=== PATIENT | male | born 1990 | race Caucasian/White ===

== ENCOUNTER 2018-12-08 15:08 | Emergency (ER) | payer OTHER ==
[2018-12-08 15:14] VITALS: BP 141/87
[2018-12-08] MEDS ORDERED: ERYTHROMYCIN 0.5% 1 GM OPHT.OINT LEFTEYE ONE (15:36)
--- NOTE | 2018-12-08 15:41 | EDPHY ---
General - History Smoking Status: Never smoked Time Seen by Provider: 12/08/18 15:18 Narrative: CLINICAL IMPRESSION: Left upper eyelid blepharitis ASSESSMENT/PLAN: 28-year-old male presents to the emergency department with atraumatic swelling of the left upper eyelid associated with discharge this morning. No reported vision changes. No palpable or visible hordeolum or Chalazion. He does not have purulent discharge to suggest bacterial conjunctivitis. I have given him erythromycin ointment, warm compresses suggested, work note excusing him from work today, follow up with PCP. Warning signs return to ED sooner discussed and discharge. CHIEF COMPLAINT: "I think I have pink eye". HPI: 28-year-old otherwise healthy male who works in the [employer] services here at [facility] presents to the emergency department with complaints of atraumatic left eye swelling and discharge. Patient reports symptoms began yesterday after he left work. Today he awoke with his eye "crusted shut". He has not had discharge during the day but states he has a burning sensation to the upper eyelid. He does not wear glasses or contacts. No prior eye surgery. No chemical exposures at his job. He tried rinsing the eye and an eye wash station yesterday. He denies foreign body sensation. PAST MEDICAL HISTORY: No significant past medical, surgical or social history. Works in the [employer] services at [facility] See triage summary and nurse notes for addition applicable history REVIEW OF SYSTEMS: A full 10 point review of systems was negative except for those mentioned in HPI. PHYSICAL EXAM: General Appearance: Alert, oriented, appropriate, cooperative, NAD, well hydrated, non-toxic appearing, VSS, no hypoxia. HEENT: TMs are clear bilaterally no perforation or FB, no injection, no evidence of serous or mucopurulent otitis. Oropharynx clear is no erythema or exudates, no tonsillar hypertrophy or asymmetry. Dentition without abnormality. Eyes: PERRLA, no acute vision change, discharge, pain or photosensitivity. Swelling of the left upper eyelid, no obvious hordeolum or too lazy in, Conjunctiva pink, no pallor or injection no discharge from the medial canthus. MEDICAL DECISION MAKING: Patient was seen independently. Secondary supervising physician at time of evaluation was: Dr. Adams. Diagnosis: Blepharitis, left upper eyelid. New, requires workup Summary: See Assessment and Plan for summary of ED visit Patient Progress: Stable for discharge. (Nigel Hernandez) The patient was evaluated and managed by the physician distribution center assistant. I have reviewed this chart and I agree with the findings and plan of care as documented , as indicated by my signature. I am the secondary supervising physician. ( Ashley Adams) - Objective Vital Signs: Initial Vital Signs Temperature (C) 36.8 C 12/08/18 15:11 Heart Rate 77 12/08/18 15:11 Respiratory Rate 18 12/08/18 15:11 Blood Pressure 141/87 H 12/08/18 15:11 O2 Sat (%) 97 12/08/18 15:11 O2 Delivery Mode Room Air Allergies/Adverse Reactions: No Known Allergies Allergy (Unverified 12/08/18 15:11) Home Medications: Medication Instructions Recorded Erythromycin 0.5% 1 genaro LEFTEYE Q6 7 Days #1 tube 12/08/18 Medications Given: Discontinued Medications Erythromycin (Erythromycin 0.5%) 1 genaro LEFTEYE ONCE ONE Stop: 12/08/18 15:37 Last Admin: 12/08/18 15:47 Dose: 1 genaro Departure - Departure Disposition: Home, Routine, Self-Care Clinical Impression: Blepharitis of eyelid of left eye Condition: Good Instructions: Blepharitis (ED) Additional Instructions: DISCHARGE INSTRUCTIONS FROM YOUR DOCTOR Thank you for visiting our emergency department today. You were treated by a physician distribution center assistant today and your case was reviewed with our ED Attending physician. Please keep in mind that discharge from the emergency department does not mean that there is nothing wrong - it simply means that we have not identified an emergency condition that requires further evaluation or treatment in the hospital. You should always plan to follow up with primary care for re- evaluation of your condition in the next 2-3 days. If you have been referred to a specialist, please call as soon as possible (today or tomorrow) to schedule your follow up appointment at the appropriate time. PLEASE USE YOU ERYTHROMYCIN OINTMENT TO THE EYE 4 TIMES DAILY FOR 1 WEEK. APPLY WARM COMPRESSES TO THE EYE. FOLLOW UP WITH YOUR PRIMARY CARE DOCTOR THIS WEEK. A WORK NOTE WAS GIVEN TO EXCUSE YOUR FROM WORK TODAY. RETURN TO THE EMERGENCY DEPARTMENT FOR WORSENING OR SEVERE EYE PAIN, VISION CHANGES, FACIAL SWELLING, FEVERS OR ANY OTHER CONCERN. People present with illnesses and injuries in different ways, and it is always possible that we have missed something. You may always return for re-evaluation if symptoms worsen or if they are not improving or if you develop new/different symptoms. Again, thank you for choosing our emergency department. We hope that you feel better. Referrals: Red Powell MD [Medical Doctor] - As per Instructions Stand Alone Forms: Work Excuse Prescriptions: Erythromycin 0.5% 1 genaro LEFTEYE Q6 7 Days #1 tube
== END 2018-12-08 16:01 | disposition home or self-care (01) ==
DX: H01.004 Unspecified blepharitis left upper eyelid (principal)